=== PATIENT | female | born 1935 | race Caucasian/White ===

== ENCOUNTER 2017-04-06 10:20 | Inpatient (IN) | payer OTHER ==
[~2017-04-06] VITALS: Ht 149.9 cm; Wt 79.1 kg
[~2017-04-06 10:20] MED LIST: AMLODIPINE-BEN1 EAC3 PO; ANALGESIC325 M1 PO; ARICEPT5 MG PO; ASPIRIN325 MG PO; AUGMENTIN875 MG PO; Aspirin PO; CALCIO DEL MAR500 MG PO; CALCIUM 500 +1 EAC2 PO; CATAPRES0.3 MG PO; CEFTIN250 MG PO; Ceftin PO; Cipro PO; FLEXERIL10 MG PO; FLORASTOR250 MG PO; Feosol PO; Fish Oil PO; Flora-Q,Risaquad PO; GLIPIZIDE10 M1 PO; GLUCOTROL XL10 MG PO; GLUCOTROL10 MG PO; IRON325 MG PO; JANUMET 50/11 TABLET PO; LIPITOR10 MG PO; LIPITOR5 MG PO; OMEPRAZOLE20 M3 PO; Oyst-Cal D, Oscal W/ PO; PREVALITE PACKET4 GM PO; PRILOSEC20 MG PO; Theragran-M,Centrum, PO; Ultram PO; VITAMIN D2000 UNIT PO; Vitamin-E PO
[2017-04-06 11:38] LABS: BASOPHIL (%) 0.1 % (0-1); EOSINOPHIL (%) 0 % (0-5); HEMATOCRIT 39.3 % (36.0-46.0); HEMOGLOBIN 12.7 G/DL (11.9-15.5); LYMPHOCYTE (%) 4.3 % (15-42); LYMPHOCYTE COUNT 1.2 K/uL (1.0-2.8); MCH 29.5 PG (29.0-34.0); MCHC 32.3 G/DL (30.0-36.0); MCV 91.4 FL (83-99); MONOCYTE (%) 8.4 % (3-12); MONOCYTE COUNT 2.4 K/uL (0-0.8); NEUTROPHIL (%) 86.2 % (45-76); NRBC (%) 0.2 /100 WBC (0-0); PLATELET COUNT 205 K/uL (156-360); RBC DIS.WIDTH-CV 13.9 % (11.8-14.6); WHITE BLOOD COUNT 27.9 K/uL (4.1-10.2)
[2017-04-06 11:47] LABS: AMYLASE 58 IU/L (1-118); CHLORIDE 97 mEq/L (99-109); SODIUM 136 mEq/L (136-147)
[2017-04-06 11:49] LABS: GLUCOSE 222 mg/dL (70-99)
[2017-04-06 11:52] LABS: SERUM ETHYL ALCOHOL < 10 mg/dL
[2017-04-06 11:53] LABS: CREATININE 0.8 mg/dL (0.6-1.3); GFR ESTIMATE (CALCULATED) > 59 mL/min/
[2017-04-06 11:54] LABS: UREA NITROGEN (BUN) 44 mg/dL (9-23)
[2017-04-06 11:56] LABS: LIPASE 5 U/L (1.0-51.0); TOTAL CK 1269 IU/L (1-294)
[2017-04-06 12:02] LABS: CK-MB 9.7 ng/mL (0.0-4.9); CKMB RELATIVE INDEX 0.8 (0.0-3.9)
[2017-04-06 12:02] LABS: TROP-I INTERPRETATION NEGATIVE; TROPONIN-I 0.02 ng/mL (0.0-0.30)
[2017-04-06 12:11] LABS: CREATINE KINASE 1269 IU/L (1-294)
[2017-04-06 12:17] LABS: APPEARANCE SL.HAZY ((CLEAR)); BILIRUBIN NEGATIVE; BLOOD MODERATE; COLOR YELLOW ((YELLOW)); GLUCOSE (STRIP) 50; KETONES 80; LEUKOCYTES NEGATIVE; NITRITE NEGATIVE; PROTEIN (STRIP) >=500; UROBILINOGEN 0.2 MG/DL (0.2-1.0)
[2017-04-06 12:24] LABS: BACTERIA RARE /HPF; EPITHELIAL CELLS 1+ /HPF; HYALINE CASTS 20-30 /LPF; MUCUS 4+ /LPF; RED BLOOD CELLS 0-5 /HPF (0-5); UCUL ADDED? NO; WHITE BLOOD CELLS 0-5 /HPF (0-5)
[2017-04-06 12:28] LABS: AMPHETAMINE NEGATIVE (500 ng/mL); BARBITURATES NEGATIVE (200 ng/mL); BENZODIAZEPINES NEGATIVE (150 ng/mL); BUPRENORPHINE NEGATIVE (10 ng/mL); COCAINE NEGATIVE (150 ng/mL); METHADONE NEGATIVE (200 ng/mL); METHAMPHETAMINE NEGATIVE (500 ng/mL); OPIATES (MORPHINE) NEGATIVE (100 ng/mL); OXYCODONE NEGATIVE (100 ng/mL); PHENCYCLIDINE NEGATIVE (25 ng/mL); PROPOXYPHENE NEGATIVE (300 ng/mL); THC CANNABINOIDS NEGATIVE (50 ng/mL); TRICYCLIC ANTIDEPRESSANTS NEGATIVE (300 ng/mL)
[2017-04-06 12:38] LABS: SPECIFIC GRAVITY 1.055 (1.000-1.030)
[2017-04-06] MEDS ORDERED: VITAMIN D31000 UNI2 PO (13:42)
[2017-04-06] MEDS ORDERED: CRANBERRY500 M3 PO (13:43)
[2017-04-06 15:19] VITALS: BP 169/73
[2017-04-06 19:33] VITALS: BP 136/63
[2017-04-06 23:23] VITALS: BP 134/62
[2017-04-07 03:46] VITALS: BP 138/63
[2017-04-07 06:10] LABS: HEMATOCRIT 30.8 % (36.0-46.0); HEMOGLOBIN 9.9 G/DL (11.9-15.5); MCH 29.6 PG (29.0-34.0); MCHC 32.1 G/DL (30.0-36.0); MCV 91.9 FL (83-99); NRBC (%) 0.2 /100 WBC (0-0); PLATELET COUNT 181 K/uL (156-360); RBC DIS.WIDTH-CV 14.1 % (11.8-14.6); RBC DIS.WIDTH-SD 47.8 % (39-53); RED BLOOD COUNT 3.35 M/uL (3.80-5.20); WHITE BLOOD COUNT 16.7 K/uL (4.1-10.2)
[2017-04-07 06:27] LABS: ALKALINE PHOSPHATASE 37 IU/L (3-129); ALT (GPT) 26 IU/L (3-49); AST (GOT) 43 IU/L (2-34); CHLORIDE 101 MEQ/L (99-109); CREATINE KINASE 589 IU/L (1-294); CREATININE 0.7 MG/DL (0.6-1.3); GFR ESTIMATE (CALCULATED) > 59 mL/min/; GLUCOSE 183 mg/dL (70-99); POTASSIUM 3.8 MEQ/L (3.7-5.4); SODIUM 140 MEQ/L (136-147); TOTAL BILIRUBIN 0.9 MG/DL (0.0-1.0); TOTAL PROTEIN 5.4 G/DL (6.4-8.3); UREA NITROGEN (BUN) 43 mg/dL (9-23)
[2017-04-07 07:42] VITALS: BP 139/61
[2017-04-07 11:41] VITALS: BP 153/67
[2017-04-07 15:33] VITALS: BP 162/68; BP 197/90
[2017-04-07 19:42] VITALS: BP 141/63
[2017-04-07 23:00] VITALS: BP 147/73
[2017-04-08] VITALS (8 sets, daily range): BP systolic 139–171; BP diastolic 70–87
[2017-04-09 03:15] VITALS: BP 158/79
[2017-04-09 06:57] LABS: HEMATOCRIT 36.1 % (36.0-46.0); HEMOGLOBIN 11.5 G/DL (11.9-15.5); MCH 29.3 PG (29.0-34.0); MCHC 31.9 G/DL (30.0-36.0); MCV 91.9 FL (83-99); NRBC (%) 0.1 /100 WBC (0-0); PLATELET COUNT 156 K/uL (156-360); RBC DIS.WIDTH-CV 13.9 % (11.8-14.6); RBC DIS.WIDTH-SD 46.9 % (39-53); RED BLOOD COUNT 3.93 M/uL (3.80-5.20); WHITE BLOOD COUNT 15.4 K/uL (4.1-10.2)
[2017-04-09 07:12] LABS: CHLORIDE 96 MEQ/L (99-109); CREATININE 0.5 MG/DL (0.6-1.3); GFR ESTIMATE (CALCULATED) > 59 mL/min/; GLUCOSE 176 mg/dL (70-99); POTASSIUM 3.3 MEQ/L (3.7-5.4); SODIUM 136 MEQ/L (136-147)
[2017-04-09 07:21] LABS: UREA NITROGEN (BUN) 14 mg/dL (9-23)
[2017-04-09 07:38] VITALS: BP 162/73
[2017-04-09 11:53] VITALS: BP 155/67
[2017-04-09 16:30] VITALS: BP 142/60
[2017-04-09 19:55] VITALS: BP 144/65
[2017-04-10 00:09] VITALS: BP 163/75
[2017-04-10 04:16] VITALS: BP 144/93
[2017-04-10 06:23] LABS: HEMATOCRIT 32.4 % (36.0-46.0); HEMOGLOBIN 10.2 G/DL (11.9-15.5); MCH 28.8 PG (29.0-34.0); MCHC 31.5 G/DL (30.0-36.0); MCV 91.5 FL (83-99); NRBC (%) 0.1 /100 WBC (0-0); PLATELET COUNT 183 K/uL (156-360); RBC DIS.WIDTH-SD 47.1 % (39-53); RED BLOOD COUNT 3.54 M/uL (3.80-5.20); WHITE BLOOD COUNT 13.9 K/uL (4.1-10.2)
[2017-04-10 06:47] LABS: CHLORIDE 96 MEQ/L (99-109); CREATININE 0.5 MG/DL (0.6-1.3); GFR ESTIMATE (CALCULATED) > 59 mL/min/; GLUCOSE 150 mg/dL (70-99); POTASSIUM 3.9 MEQ/L (3.7-5.4); SODIUM 134 MEQ/L (136-147); UREA NITROGEN (BUN) 15 mg/dL (9-23)
[2017-04-10 08:30] VITALS: BP 158/77
[2017-04-10 13:05] VITALS: BP 150/67
[2017-04-10 16:03] VITALS: BP 146/78
[2017-04-10 20:08] VITALS: BP 138/68
[2017-04-11] VITALS (7 sets, daily range): BP systolic 149–180; BP diastolic 70–84
[2017-04-11 05:41] LABS: HEMATOCRIT 32.8 % (36.0-46.0); HEMOGLOBIN 10.4 G/DL (11.9-15.5); MCH 29.4 PG (29.0-34.0); MCHC 31.7 G/DL (30.0-36.0); MCV 92.7 FL (83-99); NRBC (%) 0.2 /100 WBC (0-0); PLATELET COUNT 220 K/uL (156-360); RBC DIS.WIDTH-CV 14.2 % (11.8-14.6); RBC DIS.WIDTH-SD 47.6 % (39-53); RED BLOOD COUNT 3.54 M/uL (3.80-5.20); WHITE BLOOD COUNT 12.8 K/uL (4.1-10.2)
[2017-04-11 06:06] LABS: CHLORIDE 98 MEQ/L (99-109); CREATININE 0.6 MG/DL (0.6-1.3); GFR ESTIMATE (CALCULATED) > 59 mL/min/; GLUCOSE 128 mg/dL (70-99); POTASSIUM 3.7 MEQ/L (3.7-5.4); SODIUM 136 MEQ/L (136-147); UREA NITROGEN (BUN) 20 mg/dL (9-23)
[2017-04-11 15:32] LABS: HEMOGLOBIN A1c (GLYCOHEMOGLOB) 6.9 % (Below 5.7)
[2017-04-12 07:52] VITALS: BP 136/73
[2017-04-12 08:15] VITALS: BP 158/73
[2017-04-12 10:24] LABS: CHLORIDE 97 MEQ/L (99-109); CREATININE 0.5 MG/DL (0.6-1.3); GFR ESTIMATE (CALCULATED) > 59 mL/min/; POTASSIUM 4.1 MEQ/L (3.7-5.4); SODIUM 131 MEQ/L (136-147); UREA NITROGEN (BUN) 25 mg/dL (9-23)
[2017-04-12 10:25] LABS: GLUCOSE 344 mg/dL (70-99)
[2017-04-12] MEDS ORDERED: DOXYCYCLINE HY100 M3 PO (13:24)
[2017-04-12] MEDS ORDERED: DOCUSATE SODIU100 MG PO (13:27)
[2017-04-12] MEDS ORDERED: BISACODYL5 MG PO (13:27)
[2017-04-12] MEDS ORDERED: LEVEMIR100 UNIT/2 SC (13:27)
[2017-04-12] MEDS ORDERED: NOVOLOG 10100 UNITS/ SC (13:28)
[2017-04-12] MEDS ORDERED: TRAMADOL HCL50 MG PO (13:31)
== END 2017-04-12 16:48 | DRG 872 ==
LOC: TRA 10:20 → EDOF 13:06 → 3EAST 13:06 → CANRESERV 13:24 → ENRESERV 13:24 → 3EAST 14:44
PROVIDERS: Emergency Medicine; Hospitalist; Internal Medicine; Physician Assistant; Physician Assistant Medical
DX: A41.9 Sepsis, unspecified organism (principal); M48.54XA Collapsed vertebra, not elsewhere classified, thoracic region, initial encounter for fracture; T79.6XXA Traumatic ischemia of muscle, initial encounter; F01.50 Vascular dementia, unspecified severity, without behavioral disturbance, psychotic disturbance, mood disturbance, and anxiety; M48.56XA Collapsed vertebra, not elsewhere classified, lumbar region, initial encounter for fracture; M48.061 Spinal stenosis, lumbar region without neurogenic claudication; B96.89 Other specified bacterial agents as the cause of diseases classified elsewhere; E11.65 Type 2 diabetes mellitus with hyperglycemia; E87.6 Hypokalemia; M25.331 Other instability, right wrist; I10 Essential (primary) hypertension; E87.2 Acidosis; K44.9 Diaphragmatic hernia without obstruction or gangrene; S09.90XA Unspecified injury of head, initial encounter; W18.30XA Fall on same level, unspecified, initial encounter; Y92.009 Unspecified place in unspecified non-institutional (private) residence as the place of occurrence of the external cause; I67.2 Cerebral atherosclerosis; R29.6 Repeated falls; E78.5 Hyperlipidemia, unspecified; E86.0 Dehydration; K21.9 Gastro-esophageal reflux disease without esophagitis; D50.9 Iron deficiency anemia, unspecified; D89.9 Disorder involving the immune mechanism, unspecified; M43.16 Spondylolisthesis, lumbar region; M46.90 Unspecified inflammatory spondylopathy, site unspecified; M85.80 Other specified disorders of bone density and structure, unspecified site; Z68.35 Body mass index [BMI] 35.0-35.9, adult; Z90.49 Acquired absence of other specified parts of digestive tract; Z86.73 Personal history of transient ischemic attack (TIA), and cerebral infarction without residual deficits; Z79.82 Long term (current) use of aspirin; Z79.4 Long term (current) use of insulin
CPT/HCPCS: 70450; 70486; 70551; 71260; 72125; 72129; 72132; 72148; 73060; 73110; 73502; 73564; 74177; 80048; 80053; 81003; 82150; 82550; 82553; 82948; 83036; 83605; 83690; 84484; 85025; 85027; 86850; 86900; 86901; 87040; 87801; 93005; 97530 GO; 99281; 99285; G0480; J0696; J1644; J1815; J7120

== ENCOUNTER 2017-04-16 07:55 | Emergency (ER) | payer OTHER ==
[~2017-04-16] VITALS: Ht 149.9 cm; Wt 71.8 kg
[~2017-04-16 07:55] MED LIST changes: +BISACODYL5 MG PO; +CRANBERRY500 M3 PO; +DOCUSATE SODIU100 MG PO; +DOXYCYCLINE HY100 M3 PO; +LEVEMIR100 UNIT/2 SC; +NOVOLOG 10100 UNITS/ SC; +TRAMADOL HCL50 MG PO; +VITAMIN D31000 UNI2 PO
[2017-04-16] MEDS ORDERED: NORCO 5/3251 TABLET PO (09:38)
[2017-04-16 10:57] VITALS: BP 154/79
== END 2017-04-16 10:59 ==
LOC: EME 07:55
DX: S42.212A Unspecified displaced fracture of surgical neck of left humerus, initial encounter for closed fracture (principal); S42.252A Displaced fracture of greater tuberosity of left humerus, initial encounter for closed fracture; S42.292A Other displaced fracture of upper end of left humerus, initial encounter for closed fracture; S90.112A Contusion of left great toe without damage to nail, initial encounter; S43.032A Inferior subluxation of left humerus, initial encounter; W18.30XA Fall on same level, unspecified, initial encounter; Y92.129 Unspecified place in nursing home as the place of occurrence of the external cause; R29.6 Repeated falls; Z91.81 History of falling; I10 Essential (primary) hypertension; E11.9 Type 2 diabetes mellitus without complications; Z79.4 Long term (current) use of insulin; Z79.82 Long term (current) use of aspirin
CPT/HCPCS: 73030; 73060; 93005; 99281; 99284

== ENCOUNTER 2017-08-31 15:50 | Inpatient (IN) | payer OTHER ==
[~2017-08-31] VITALS: Ht 147.3 cm; Wt 70.0 kg
[~2017-08-31 15:50] MED LIST changes: -ASPIRIN325 MG PO; -CALCIUM 500 +1 EAC2 PO; +CALCIUM 600 +1 EA17 PO; +IRON325 M1 PO; -IRON325 MG PO; +JANUVIA25 MG PO; +LITE COAT ASPI325 M1 PO; +NORCO 5/3251 TABLET PO; -VITAMIN D31000 UNI2 PO; +VITAMIN D32000 UNI1 PO
[2017-08-31 17:36] LABS: APPEARANCE CLEAR ((CLEAR)); BILIRUBIN NEGATIVE; BLOOD NEGATIVE; COLOR STRAW ((YELLOW)); GLUCOSE (STRIP) NEGATIVE; KETONES NEGATIVE; LEUKOCYTES NEGATIVE; NITRITE NEGATIVE; PROTEIN (STRIP) NEGATIVE; SPECIFIC GRAVITY 1.004 (1.000-1.030); UROBILINOGEN 0.2 MG/DL (0.2-1.0)
[2017-08-31 17:52] LABS: HEMATOCRIT 33.3 % (36.0-46.0); MCH 30.4 PG (29.0-34.0); NRBC (%) 0.1 /100 WBC (0-0); RBC DIS.WIDTH-CV 15.7 % (11.8-14.6); RBC DIS.WIDTH-SD 53.1 % (39-53); RED BLOOD COUNT 3.62 M/uL (3.80-5.20); WHITE BLOOD COUNT 14.2 K/uL (4.1-10.2)
[2017-08-31 17:57] LABS: PLATELET COUNT 213 K/uL (156-360)
[2017-08-31 18:03] LABS: ALBUMIN 4.1 g/dL (3.2-4.8)
[2017-08-31 18:04] LABS: CHLORIDE 100 mEq/L (99-109); SODIUM 137 mEq/L (136-147)
[2017-08-31 18:06] LABS: GLUCOSE 132 mg/dL (70-99); TOTAL PROTEIN 6.9 g/dL (6.4-8.3)
[2017-08-31 18:08] LABS: TOTAL BILIRUBIN 0.9 mg/dL (0.0-1.0)
[2017-08-31 18:09] LABS: ALKALINE PHOSPHATASE 53 IU/L (3-129)
[2017-08-31 18:10] LABS: CREATININE 0.7 mg/dL (0.6-1.3); GFR ESTIMATE (CALCULATED) > 59 mL/min/
[2017-08-31 18:11] LABS: AST (GOT) 23 IU/L (2-34); UREA NITROGEN (BUN) 13 mg/dL (9-23)
[2017-08-31 18:13] LABS: ALT (GPT) 15 IU/L (3-49)
[2017-08-31 18:14] LABS: TROP-I INTERPRETATION NEGATIVE; TROPONIN-I 0.03 ng/mL (0.0-0.30)
[2017-08-31] MEDS ORDERED: ATORVASTATIN CA10 MG PO (20:45)
[2017-08-31] MEDS ORDERED: METFORMIN HCL1000 MG PO (20:45)
[2017-08-31] MEDS ORDERED: DITROPAN5 MG PO (20:47)
[2017-08-31] MEDS ORDERED: CLARITIN,ALAVAR10 MG PO (20:49)
[2017-08-31] MEDS ORDERED: CYANOCOBALAM1000 MCG PO (20:49)
[2017-08-31] MEDS ORDERED: ANTI-DIARRH1 MG/5 ML PO (20:51)
[2017-08-31] MEDS ORDERED: TRAMADOL HCL50 MG PO (20:52)
[2017-08-31] MEDS ORDERED: QUESTRAN POWDE378 GM PO (20:53)
[2017-08-31] MEDS ORDERED: TYLENOL REGULA325 MG PO (20:53)
[2017-08-31 23:46] VITALS: BP 144/64
[2017-09-01 03:41] VITALS: BP 125/62
[2017-09-01 05:19] LABS: BASOPHIL (%) 0.5 % (0-1); BASOPHIL COUNT 0.1 K/uL (0-0.1); EOSINOPHIL (%) 0.6 % (0-5); EOSINOPHIL COUNT 0.1 K/uL (0-0.3); HEMATOCRIT 30.4 % (36.0-46.0); HEMOGLOBIN 9.8 G/DL (11.9-15.5); IMMATURE GRANULOCYTE (%) 0.5 % (0.0-0.7); LYMPHOCYTE (%) 17.1 % (15-42); LYMPHOCYTE COUNT 2.1 K/uL (1.0-2.8); MCH 29.9 PG (29.0-34.0); MCHC 32.2 G/DL (30.0-36.0); MCV 92.7 FL (83-99); MONOCYTE COUNT 1.3 K/uL (0-0.8); NEUTROPHIL (%) 71.3 % (45-76); NEUTROPHIL COUNT 8.9 K/uL (1.8-6.4); PLATELET COUNT 191 K/uL (156-360); RBC DIS.WIDTH-CV 15.7 % (11.8-14.6); RBC DIS.WIDTH-SD 53.4 % (39-53); RED BLOOD COUNT 3.28 M/uL (3.80-5.20); WHITE BLOOD COUNT 12.4 K/uL (4.1-10.2)
[2017-09-01 06:18] LABS: CHLORIDE 101 MEQ/L (99-109); CREATININE 0.6 MG/DL (0.6-1.3); GFR ESTIMATE (CALCULATED) > 59 mL/min/; GLUCOSE 157 mg/dL (70-99); SODIUM 136 MEQ/L (136-147); UREA NITROGEN (BUN) 10 mg/dL (9-23)
[2017-09-01 07:44] VITALS: BP 141/78
[2017-09-01 09:27] LABS: THYROTROPIN (TSH) 1.9 MIU/L (0.4-5.5)
[2017-09-01 10:53] LABS: FOLIC ACID (FOLATE) 18.5 NG/ML (5.0-22.0)
[2017-09-01 11:47] VITALS: BP 144/72
[2017-09-01 15:08] VITALS: BP 147/67
[2017-09-01 20:07] VITALS: BP 133/71
[2017-09-02 00:01] VITALS: BP 135/65
[2017-09-02 03:32] VITALS: BP 133/60
[2017-09-02 05:51] LABS: BASOPHIL (%) 0.5 % (0-1); BASOPHIL COUNT 0.1 K/uL (0-0.1); EOSINOPHIL (%) 0.4 % (0-5); EOSINOPHIL COUNT 0.1 K/uL (0-0.3); HEMATOCRIT 31.3 % (36.0-46.0); HEMOGLOBIN 9.9 G/DL (11.9-15.5); IMMATURE GRANULOCYTE (%) 0.4 % (0.0-0.7); LYMPHOCYTE (%) 21.7 % (15-42); MCH 29.7 PG (29.0-34.0); MCHC 31.6 G/DL (30.0-36.0); MONOCYTE (%) 14.3 % (3-12); NEUTROPHIL (%) 62.7 % (45-76); NEUTROPHIL COUNT 8.6 K/uL (1.8-6.4); PLATELET COUNT 203 K/uL (156-360); RBC DIS.WIDTH-CV 15.9 % (11.8-14.6); RBC DIS.WIDTH-SD 54.7 % (39-53); RED BLOOD COUNT 3.33 M/uL (3.80-5.20); WHITE BLOOD COUNT 13.7 K/uL (4.1-10.2)
[2017-09-02 06:09] LABS: CHLORIDE 105 MEQ/L (99-109); CREATININE 0.7 MG/DL (0.6-1.3); GFR ESTIMATE (CALCULATED) > 59 mL/min/; GLUCOSE 156 mg/dL (70-99); POTASSIUM 4.1 MEQ/L (3.7-5.4); SODIUM 140 MEQ/L (136-147); UREA NITROGEN (BUN) 9 mg/dL (9-23)
[2017-09-02 07:52] VITALS: BP 135/65
[2017-09-02 10:08] LABS: HEMOGLOBIN A1c (GLYCOHEMOGLOB) 6.9 % (Below 5.7)
[2017-09-02 12:00] VITALS: BP 133/61
[2017-09-02 15:48] VITALS: BP 178/78
[2017-09-02 20:10] VITALS: BP 142/67
[2017-09-03] VITALS (7 sets, daily range): BP systolic 118–184; BP diastolic 56–82
[2017-09-03 05:43] LABS: BASOPHIL (%) 0.4 % (0-1); BASOPHIL COUNT 0.1 K/uL (0-0.1); EOSINOPHIL (%) 0.1 % (0-5); HEMATOCRIT 29.9 % (36.0-46.0); HEMOGLOBIN 9.7 G/DL (11.9-15.5); IMMATURE GRANULOCYTE (%) 0.5 % (0.0-0.7); LYMPHOCYTE (%) 11.7 % (15-42); LYMPHOCYTE COUNT 1.9 K/uL (1.0-2.8); MCH 30.2 PG (29.0-34.0); MCHC 32.4 G/DL (30.0-36.0); MCV 93.1 FL (83-99); MONOCYTE (%) 13.1 % (3-12); MONOCYTE COUNT 2.2 K/uL (0-0.8); NEUTROPHIL (%) 74.2 % (45-76); NEUTROPHIL COUNT 12.2 K/uL (1.8-6.4); PLATELET COUNT 177 K/uL (156-360); RBC DIS.WIDTH-CV 15.9 % (11.8-14.6); RBC DIS.WIDTH-SD 54.2 % (39-53); RED BLOOD COUNT 3.21 M/uL (3.80-5.20); WHITE BLOOD COUNT 16.4 K/uL (4.1-10.2)
[2017-09-03 06:01] LABS: CHLORIDE 105 MEQ/L (99-109); CREATININE 0.6 MG/DL (0.6-1.3); GFR ESTIMATE (CALCULATED) > 59 mL/min/; GLUCOSE 186 mg/dL (70-99); POTASSIUM 3.7 MEQ/L (3.7-5.4); SODIUM 137 MEQ/L (136-147); UREA NITROGEN (BUN) 14 mg/dL (9-23)
[2017-09-04 03:21] VITALS: BP 126/64
[2017-09-04 06:24] LABS: BASOPHIL (%) 0.4 % (0-1); BASOPHIL COUNT 0.1 K/uL (0-0.1); EOSINOPHIL (%) 0.3 % (0-5); EOSINOPHIL COUNT 0.1 K/uL (0-0.3); HEMATOCRIT 29.6 % (36.0-46.0); HEMOGLOBIN 9.4 G/DL (11.9-15.5); IMMATURE GRANULOCYTE (%) 0.5 % (0.0-0.7); LYMPHOCYTE COUNT 2.3 K/uL (1.0-2.8); MCH 29.7 PG (29.0-34.0); MCHC 31.8 G/DL (30.0-36.0); MCV 93.7 FL (83-99); MONOCYTE (%) 10.7 % (3-12); MONOCYTE COUNT 2.1 K/uL (0-0.8); NEUTROPHIL (%) 76.1 % (45-76); NEUTROPHIL COUNT 14.7 K/uL (1.8-6.4); NRBC (%) 0.2 /100 WBC (0-0); PLATELET COUNT 188 K/uL (156-360); RBC DIS.WIDTH-CV 15.8 % (11.8-14.6); RBC DIS.WIDTH-SD 54.9 % (39-53); RED BLOOD COUNT 3.16 M/uL (3.80-5.20); WHITE BLOOD COUNT 19.2 K/uL (4.1-10.2)
[2017-09-04 06:46] LABS: CHLORIDE 104 MEQ/L (99-109); CREATININE 0.8 MG/DL (0.6-1.3); GFR ESTIMATE (CALCULATED) > 59 mL/min/; GLUCOSE 158 mg/dL (70-99); POTASSIUM 3.8 MEQ/L (3.7-5.4); SODIUM 136 MEQ/L (136-147); UREA NITROGEN (BUN) 24 mg/dL (9-23)
[2017-09-04 07:04] VITALS: BP 131/67
[2017-09-04 11:13] VITALS: BP 133/73
[2017-09-04 14:59] VITALS: BP 122/73
[2017-09-04 19:37] VITALS: BP 117/57
[2017-09-05 02:23] VITALS: BP 140/67
[2017-09-05 05:00] VITALS: BP 104/59
[2017-09-05 05:42] LABS: BASOPHIL (%) 0.6 % (0-1); BASOPHIL COUNT 0.1 K/uL (0-0.1); EOSINOPHIL (%) 2.1 % (0-5); EOSINOPHIL COUNT 0.3 K/uL (0-0.3); HEMATOCRIT 27.6 % (36.0-46.0); HEMOGLOBIN 8.7 G/DL (11.9-15.5); IMMATURE GRANULOCYTE (%) 0.6 % (0.0-0.7); LYMPHOCYTE COUNT 1.9 K/uL (1.0-2.8); MCH 29.4 PG (29.0-34.0); MCHC 31.5 G/DL (30.0-36.0); MCV 93.2 FL (83-99); MONOCYTE (%) 8.6 % (3-12); MONOCYTE COUNT 1.2 K/uL (0-0.8); NEUTROPHIL (%) 75.1 % (45-76); NEUTROPHIL COUNT 10.9 K/uL (1.8-6.4); PLATELET COUNT 186 K/uL (156-360); RBC DIS.WIDTH-CV 15.8 % (11.8-14.6); RBC DIS.WIDTH-SD 53.5 % (39-53); RED BLOOD COUNT 2.96 M/uL (3.80-5.20); WHITE BLOOD COUNT 14.4 K/uL (4.1-10.2)
[2017-09-05 06:02] LABS: CHLORIDE 105 MEQ/L (99-109); CREATININE 0.5 MG/DL (0.6-1.3); GFR ESTIMATE (CALCULATED) > 59 mL/min/; GLUCOSE 142 mg/dL (70-99); SODIUM 136 MEQ/L (136-147); UREA NITROGEN (BUN) 21 mg/dL (9-23)
[2017-09-05 07:54] VITALS: BP 129/80
[2017-09-05 12:24] VITALS: BP 135/63
[2017-09-05 12:57] LABS: CSF PROTEIN 37 mg/dL (15-45)
[2017-09-05 13:03] LABS: GLUCOSE, CSF 94 mg/dL (40-80)
[2017-09-05 13:15] LABS: APPEARANCE CLEAR/COLORLESS; CSF TUBE NUMBER TUBE #3; RED CELL COUNT 2 /MM^3 (0-1)
[2017-09-05 13:16] LABS: WHITE CELL COUNT 4 /MM^3 (0-5)
[2017-09-05 14:20] LABS: CSF EOSINOPHILS 0 % (0-25); MONONUCLEAR WBC'S 100 % (50-90); POLYNUCLEAR WBC'S 0 % (0-3)
[2017-09-05 15:11] VITALS: BP 129/62
[2017-09-05 19:13] VITALS: BP 133/67
[2017-09-06 00:28] VITALS: BP 106/63
[2017-09-06 04:35] VITALS: BP 164/72
[2017-09-06 06:05] LABS: BASOPHIL (%) 0.6 % (0-1); BASOPHIL COUNT 0.1 K/uL (0-0.1); EOSINOPHIL (%) 1.8 % (0-5); EOSINOPHIL COUNT 0.3 K/uL (0-0.3); HEMATOCRIT 29.2 % (36.0-46.0); HEMOGLOBIN 9.2 G/DL (11.9-15.5); IMMATURE GRANULOCYTE (%) 0.4 % (0.0-0.7); LYMPHOCYTE (%) 12.2 % (15-42); LYMPHOCYTE COUNT 1.7 K/uL (1.0-2.8); MCH 29.5 PG (29.0-34.0); MCHC 31.5 G/DL (30.0-36.0); MCV 93.6 FL (83-99); MONOCYTE (%) 9.5 % (3-12); MONOCYTE COUNT 1.3 K/uL (0-0.8); NEUTROPHIL (%) 75.5 % (45-76); NEUTROPHIL COUNT 10.5 K/uL (1.8-6.4); PLATELET COUNT 212 K/uL (156-360); RBC DIS.WIDTH-CV 15.5 % (11.8-14.6); RED BLOOD COUNT 3.12 M/uL (3.80-5.20); WHITE BLOOD COUNT 13.8 K/uL (4.1-10.2)
[2017-09-06 06:31] LABS: CHLORIDE 103 MEQ/L (99-109); CREATININE 0.6 MG/DL (0.6-1.3); GFR ESTIMATE (CALCULATED) > 59 mL/min/; GLUCOSE 150 mg/dL (70-99); POTASSIUM 3.7 MEQ/L (3.7-5.4); SODIUM 137 MEQ/L (136-147); UREA NITROGEN (BUN) 14 mg/dL (9-23)
[2017-09-06 07:24] VITALS: BP 136/65
[2017-09-06 12:29] LABS: C DIFF TOXIN ND (NEGATIVE)
[2017-09-06] MEDS ORDERED: DONEPEZIL HCL5 MG PO (15:01)
[2017-09-06] MEDS ORDERED: CIPROFLOXACIN500 M1 PO (15:01)
[2017-09-06] MEDS ORDERED: METRONIDAZOLE500 MG PO (15:01)
[2017-09-06 15:53] VITALS: BP 141/63
== END 2017-09-06 18:19 | disposition home or self-care (01) | DRG 71 ==
LOC: EME 15:50 → 5SOUTH 21:17 → EDOF 21:17 → ENRESERV 21:24 → EDOF 21:33 → ENRESERV 22:17 → 5SOUTH 23:19
PROVIDERS: Emergency Medicine; Hospitalist; Internal Medicine; Physician Assistant; Student in an Organized Health Care Education/Training Program
PROC: 009U3ZX Drainage of Spinal Canal, Percutaneous Approach, Diagnostic (ICD-10-PCS; principal; 2017-08-31)
PROC: B01B0ZZ Fluoroscopy of Spinal Cord using High Osmolar Contrast (ICD-10-PCS; 2017-08-31)
DX: G93.40 Encephalopathy, unspecified (principal); R09.02 Hypoxemia; R06.89 Other abnormalities of breathing; I10 Essential (primary) hypertension; E78.5 Hyperlipidemia, unspecified; F32.9 Major depressive disorder, single episode, unspecified; Z79.82 Long term (current) use of aspirin; K52.9 Noninfective gastroenteritis and colitis, unspecified; S42.309D Unspecified fracture of shaft of humerus, unspecified arm, subsequent encounter for fracture with routine healing; D72.829 Elevated white blood cell count, unspecified; K21.9 Gastro-esophageal reflux disease without esophagitis; E11.9 Type 2 diabetes mellitus without complications; Z87.440 Personal history of urinary (tract) infections; Z79.4 Long term (current) use of insulin; F03.90 Unspecified dementia, unspecified severity, without behavioral disturbance, psychotic disturbance, mood disturbance, and anxiety; J98.11 Atelectasis; E66.9 Obesity, unspecified; Z68.32 Body mass index [BMI] 32.0-32.9, adult
CPT/HCPCS: 62270; 70450; 70551; 71045; 71250; 77003; 80048; 80053; 81003; 82140; 82607; 82746; 82945; 82948; 83036; 83605; 83880; 84145 90; 84157; 84443; 84484; 85025; 85027; 87040; 87086; 87449; 87493; 89051; 93005; 94799; 97530 GO; 99281; 99285; A6214; G0378; J0295; J0456; J1644; J1815; J1956; J7030; J7050

== ENCOUNTER 2017-10-27 11:05 | Inpatient (IN) | payer OTHER ==
[~2017-10-27] VITALS: Ht 149.9 cm; Wt 66.7 kg
[~2017-10-27 11:05] MED LIST changes: +ANTI-DIARRH1 MG/5 ML PO; +ATORVASTATIN CA10 MG PO; +CIPROFLOXACIN500 M1 PO; +CLARITIN,ALAVAR10 MG PO; +CYANOCOBALAM1000 MCG PO; +DITROPAN5 MG PO; +DONEPEZIL HCL5 MG PO; +METFORMIN HCL1000 MG PO; +METRONIDAZOLE500 MG PO; +QUESTRAN POWDE378 GM PO; +TYLENOL REGULA325 MG PO
[2017-10-27 11:45] LABS: BASOPHIL (%) 0.3 % (0-1); BASOPHIL COUNT 0.1 K/uL (0-0.1); EOSINOPHIL (%) 0 % (0-5); HEMATOCRIT 36.6 % (36.0-46.0); HEMOGLOBIN 11.8 G/DL (11.9-15.5); IMMATURE GRANULOCYTE (%) 0.5 % (0.0-0.7); LYMPHOCYTE (%) 12.6 % (15-42); LYMPHOCYTE COUNT 2.7 K/uL (1.0-2.8); MCH 28.9 PG (29.0-34.0); MCHC 32.2 G/DL (30.0-36.0); MCV 89.7 FL (83-99); MONOCYTE (%) 6.8 % (3-12); MONOCYTE COUNT 1.5 K/uL (0-0.8); NEUTROPHIL (%) 79.8 % (45-76); NEUTROPHIL COUNT 17.1 K/uL (1.8-6.4); NRBC (%) 0.1 /100 WBC (0-0); PLATELET COUNT 207 K/uL (156-360); RBC DIS.WIDTH-CV 15.5 % (11.8-14.6); RBC DIS.WIDTH-SD 51.2 % (39-53); RED BLOOD COUNT 4.08 M/uL (3.80-5.20); WHITE BLOOD COUNT 21.4 K/uL (4.1-10.2)
[2017-10-27 11:48] LABS: CARBON DIOXIDE (BICARBONATE) 22.3 MEQ/L (20-31)
[2017-10-27 11:52] LABS: INTER. NORMALIZED RATIO 1.3
[2017-10-27 11:54] LABS: AMYLASE 39 IU/L (1-118)
[2017-10-27 11:55] LABS: ALBUMIN 4.2 g/dL (3.2-4.8); CHLORIDE 97 mEq/L (99-109); POTASSIUM 4.2 mEq/L (3.7-5.4); SODIUM 132 mEq/L (136-147)
[2017-10-27 11:55] LABS: PTT 26.6 SEC (25-37)
[2017-10-27 11:58] LABS: TOTAL PROTEIN 7.1 g/dL (6.4-8.3)
[2017-10-27 11:59] LABS: SERUM ETHYL ALCOHOL < 10 mg/dL
[2017-10-27 12:00] LABS: GLUCOSE 431 mg/dL (70-99); TOTAL BILIRUBIN 1.6 mg/dL (0.0-1.0)
[2017-10-27 12:01] LABS: ALKALINE PHOSPHATASE 49 IU/L (3-129); GFR ESTIMATE (CALCULATED) 56 mL/min/
[2017-10-27 12:03] LABS: AST (GOT) 38 IU/L (2-34); UREA NITROGEN (BUN) 13 mg/dL (9-23)
[2017-10-27 12:03] LABS: LIPASE 12 U/L (1.0-51.0)
[2017-10-27 12:04] LABS: ALT (GPT) 42 IU/L (3-49)
[2017-10-27 12:06] LABS: TROP-I INTERPRETATION NEGATIVE; TROPONIN-I < 0.01 ng/mL (0.0-0.30)
[2017-10-27 12:57] LABS: APPEARANCE CLEAR ((CLEAR)); BILIRUBIN NEGATIVE; BLOOD NEGATIVE; COLOR STRAW ((YELLOW)); GLUCOSE (STRIP) >=500; KETONES 5; LEUKOCYTES NEGATIVE; NITRITE NEGATIVE; PROTEIN (STRIP) NEGATIVE; SPECIFIC GRAVITY 1.012 (1.000-1.030); UCUL ADDED? NO; UROBILINOGEN 0.2 MG/DL (0.2-1.0)
[2017-10-27 13:13] LABS: AMPHETAMINE NEGATIVE (500 ng/mL); BARBITURATES NEGATIVE (200 ng/mL); BENZODIAZEPINES NEGATIVE (150 ng/mL); BUPRENORPHINE NEGATIVE (10 ng/mL); COCAINE NEGATIVE (150 ng/mL); METHADONE NEGATIVE (200 ng/mL); METHAMPHETAMINE NEGATIVE (500 ng/mL); OPIATES (MORPHINE) NEGATIVE (100 ng/mL); OXYCODONE NEGATIVE (100 ng/mL); PHENCYCLIDINE NEGATIVE (25 ng/mL); PROPOXYPHENE NEGATIVE (300 ng/mL); THC CANNABINOIDS NEGATIVE (50 ng/mL); TRICYCLIC ANTIDEPRESSANTS NEGATIVE (300 ng/mL)
[2017-10-27] MEDS ORDERED: A AND D OINTM42.5 GM TP (14:36)
[2017-10-27] MEDS ORDERED: DONEPEZIL HCL5 MG PO (14:38)
[2017-10-27] MEDS ORDERED: NYSTOP60 GM TP (14:41)
[2017-10-27 16:59] VITALS: BP 89/52
[2017-10-27 20:47] VITALS: BP 122/54
[2017-10-28 00:13] VITALS: BP 117/72
[2017-10-28 04:29] VITALS: BP 121/57
[2017-10-28 06:15] LABS: HEMATOCRIT 31.4 % (36.0-46.0); MCH 29.1 PG (29.0-34.0); MCHC 31.8 G/DL (30.0-36.0); MCV 91.3 FL (83-99); NRBC (%) 0.1 /100 WBC (0-0); PLATELET COUNT 159 K/uL (156-360); RBC DIS.WIDTH-CV 15.6 % (11.8-14.6); RBC DIS.WIDTH-SD 51.8 % (39-53); RED BLOOD COUNT 3.44 M/uL (3.80-5.20); WHITE BLOOD COUNT 13.7 K/uL (4.1-10.2)
[2017-10-28 06:38] LABS: CHLORIDE 102 MEQ/L (99-109); CREATININE 0.7 MG/DL (0.6-1.3); GFR ESTIMATE (CALCULATED) > 59 mL/min/; SODIUM 137 MEQ/L (136-147); UREA NITROGEN (BUN) 8 mg/dL (9-23)
[2017-10-28 06:47] LABS: GLUCOSE 158 mg/dL (70-99)
[2017-10-28 08:51] VITALS: BP 134/64
[2017-10-28 11:49] VITALS: BP 135/67
[2017-10-28 16:31] VITALS: BP 119/60
[2017-10-28 20:36] VITALS: BP 145/65
[2017-10-29 00:27] VITALS: BP 142/71
[2017-10-29 03:35] VITALS: BP 145/65
[2017-10-29 07:20] VITALS: BP 147/69
[2017-10-29 08:38] LABS: C DIFF TOXIN NEGATIVE (NEGATIVE)
[2017-10-29 09:21] LABS: HEMOGLOBIN 10.9 G/DL (11.9-15.5); MCH 28.5 PG (29.0-34.0); MCHC 31.1 G/DL (30.0-36.0); MCV 91.4 FL (83-99); PLATELET COUNT 187 K/uL (156-360); RBC DIS.WIDTH-CV 15.6 % (11.8-14.6); RED BLOOD COUNT 3.83 M/uL (3.80-5.20); WHITE BLOOD COUNT 10.7 K/uL (4.1-10.2)
[2017-10-29 11:15] VITALS: BP 134/69
[2017-10-29] MEDS ORDERED: AZITHROMYCIN500 M1 PO (11:54)
[2017-10-29] MEDS ORDERED: AUGMENTIN875 MG PO (11:54)
== END 2017-10-29 14:26 | disposition home or self-care (01) | DRG 871 ==
LOC: EME → EDBD 11:05 → ENRESERV 15:26 → 5SOUTH 15:27 → EDOF 15:27 → ENRESERV 15:33 → 5SOUTH 16:46 → ENPENDDIS 10-29 12:25 → 5SOUTH 10-29 14:26
PROVIDERS: Emergency Medicine; Hospitalist; Internal Medicine
DX: A41.9 Sepsis, unspecified organism (principal); J18.9 Pneumonia, unspecified organism; G93.41 Metabolic encephalopathy; E87.2 Acidosis; E86.0 Dehydration; E11.65 Type 2 diabetes mellitus with hyperglycemia; R29.810 Facial weakness; R47.1 Dysarthria and anarthria; R09.02 Hypoxemia; F01.50 Vascular dementia, unspecified severity, without behavioral disturbance, psychotic disturbance, mood disturbance, and anxiety; K05.10 Chronic gingivitis, plaque induced; K52.9 Noninfective gastroenteritis and colitis, unspecified; K21.9 Gastro-esophageal reflux disease without esophagitis; I10 Essential (primary) hypertension; E78.5 Hyperlipidemia, unspecified; F32.9 Major depressive disorder, single episode, unspecified; Z79.82 Long term (current) use of aspirin; Z88.2 Allergy status to sulfonamides; Z86.73 Personal history of transient ischemic attack (TIA), and cerebral infarction without residual deficits
CPT/HCPCS: 70450; 71045; 71260; 74177; 80048; 80053; 81003; 82010; 82150; 82803; 82948; 83605; 83690; 83930; 84145 90; 84484; 85025; 85027; 85610; 85730; 86140; 86850; 86900; 86901; 87040; 87177; 87493; 87506; 92610 GN; 93005; 93306; 95819; 99281; 99285; G0480; J1650; J1815; J2405; J2543; J3370; J7030; J7040; J7050